=== PATIENT | male | born 1970 | race Caucasian/White ===

== ENCOUNTER → 2021-02-03 | Outpatient (CLI) | payer BC ==
[~2021-02-03] MED LIST: CATHETER FLUSH 10 ML SYR IV PRN
--- NOTE | 2021-02-03 15:07 | Diagnostic Imaging Report ---
INDICATION: Abdominal pain TECHNIQUE: Acquisitions were acquired over the abdomen after administration of 5.47 mCi of technetium 99m Choletec. At 60 minutes 8 ounces of Ensure was ingested. FINDINGS: Some homogeneous uptake of isotope throughout the liver. There is significant accumulation within the gallbladder by 30 minutes. There is free flow of activity in the small bowel. Ejection fraction is 43.7%. IMPRESSION: No evidence of cystic duct obstruction with a normal ejection fraction of 43.7%. Dictated by: Dictated on workstation # [id number]
== END ==
LOC: CARD 11:15
PROVIDERS: ATTEND Nurse Practitioner Family
DX: R10.811 Right upper quadrant abdominal tenderness (principal); R10.9 Unspecified abdominal pain
CPT/HCPCS: 78227; A9537

== ENCOUNTER 2021-04-18 18:17 | Emergency (ER) | payer BC ==
[~2021-04-18] VITALS: Ht 177.8 cm; Wt 113.4 kg
[2021-04-18] MEDS ORDERED: TETANUS,DIPTH,PERTUSS P/F (BOOSTRIX) 0.5 ML VIAL IM ONE (18:45)
[2021-04-18] MEDS ORDERED: CATHETER FLUSH 10 ML SYR IV PRN (18:45)
[2021-04-18] MEDS ORDERED: IOHEXOL 350 MG/ML 100 ML (OMNIPAQUE 350) VIAL IV ONE (18:45)
[2021-04-18] MEDS ORDERED: LACTATED RINGERS 1,000 ML IV ONE (18:45)
[2021-04-18] MEDS ORDERED: NS 100 ML (IVPB) BAG IV ONE (18:45)
[2021-04-18] MEDS ORDERED: HOLD METFORMIN - RECEIVED CONTRAST 20 ML VIAL IV SCH (18:45)
--- NOTE | 2021-04-18 18:48 | ED Trauma-Multisystem ---
General Chief Complaint: Trauma-Non Activation Stated Complaint: FALL/L ARM INJ Nursing Triage Note: PT REPORTS THAT HE WAS WASHING HIS TRACTOR AND FELL OFF THE FRONT TIRE APPROX 4 FOOT OFF THE GROUND LANDING ON HIS FACE. PT REPORTS NECK, RIGHT SHOULDER, LEFT ARM PAIN. PT REPORTS LOC Source of Information: Patient History of Present Illness Date Seen by Provider: Apr 18, 2021 Time Seen by Provider: 18:30 Initial Comments PT ARRIVES VIA POV FROM HOME STATES HE WAS WASHING HIS TRACTOR, AND STANDING ON THE FRONT TIRE, AND FELL OFF, APPROXIMATELY 4', LANDING FACE FIRST AND ON LEFT WRIST, THEN ROLLED AND LANDED ON RIGHT SHOULDER--LANDED ON GRAVEL OCCURRED 1715 TONIGHT AT HOME + LOSS OF CONSCIOUSNESS--BRIEF, PER PT + POSTERIOR NECK PAIN + LEFT WRIST PAIN + RIGHT SHOULDER PAIN C/O PARESTHESIAS TO LEFT AC AREA AND FOREARM NO VISION CHANGES NO DIZZINESS NO NAUSEA/VOMITING NO PAIN IN LEGS NO PAIN IN CHEST OR ABDOMEN LAST TETANUS VACCINE 2002 PCP: OLVIN FUENTES IN [place] Allergies and Home Medications Allergies Coded Allergies: No Known Allergies (Verified Allergy, Unknown, 04/18/21) Home Medications Cyclobenzaprine HCl 10 Mg Tablet, 10 MG PO Q8H PRN for SPASMS Prescribed by: PEREZ LOPEZ on 04/18/212042 Patient Home Medication List Home Medication List Reviewed: Yes Review of Systems Review of Systems Constitutional: no symptoms reported Eyes: No Symptoms Reported Ears: No Symptoms Reported Nose: No Epistaxis; Other (NOSE PAIN AND ABRASIONS) Mouth: No Symptoms Reported Throat: No Symptoms to Report Respiratory: no symptoms reported Cardiovascular: No Symptoms Reported; Denies Chest Pain Gastrointestinal: no symptoms reported; No abdominal pain, No nausea, No vomiting Genitourinary: no symptoms reported Musculoskeletal: see HPI Skin: other (ABRASIONS TO FACE) Psychiatric/Neurological: See HPI, Headache, Tingling, Other (+ LOSS OF CONSCIOUSNESS) Past Rzeseno-Itccrb-Ctjunx Hx Past Med/Social Hx: Reviewed and Corrections made Patient Social History Alcohol Use: Rarely Uses Drug of Choice: DENIES Smoking Status: Never a Smoker 2nd Hand Smoke Exposure: No Recent Infectious Disease Expo: No Recent Hopitalizations: No Seasonal Allergies Seasonal Allergies: No Past Medical History Surgeries: Yes (WISDOM TEETH PULLED; RIGHT SHOULDER SURGERY) Orthopedic Respiratory: Yes Asthma Cardiac: Yes High Cholesterol, Hypertension Neurological: Yes (20+ YEARS SINCE LAST SEIZURE) Seizure Disorder Genitourinary: No Gastrointestinal: Yes Gastroesophageal Reflux Musculoskeletal: Yes (LEFT SHOULDER SURGERY-DR. TOLEDO/ORTHO 4 STATES) Chronic Back Pain, Fractures Endocrine: No HEENT: Yes (WEARS GLASSES; WISDOM TEETH PULLED) Cancer: No Psychosocial: No Integumentary: No Blood Disorders: No Physical Exam Vital Signs Vital Signs - First Documented 04/18/21 04/18/21 18:22 18:58 Temp 36.6 Pulse 81 Resp 17 B/P (MAP) 169/102 (124) Pulse Ox 98 O2 Delivery Room Air FiO2 21 Height, Weight, BMI Height: '" Weight: lbs. oz. kg; 35.00 BMI Method: General Appearance: No Apparent Distress, WD/WN, Other (TALKATIVE, DOES NOT APPEAR TO BE IN ANY DISCOMFORT OR DISTRESS) Head: Other (ABRASIONS TO NOSE AND FOREHEAD. ) Eyes: Bilateral Eye Normal Inspection, Bilateral Eye PERRL, Bilateral Eye EOMI Ears, Nose, Throat: Hearing Grossly Normal, No Evidence of ENT Injury, No Dental Injury Neck: Other (TENDERNESS TO MID CERVICAL SPINE) Cardiovascular: Regular Rate, Rhythm, No Edema, No JVD, No Murmur, Normal Peripheral Pulses Respiratory: Chest Non Tender, Normal Breath Sounds, No Accessory Muscle Use, No Respiratory Distress Gastrointestinal: Normal Bowel Sounds, No Organomegaly, Non Tender, Soft Back: No CVA Tenderness, No Vertebral Tenderness Extremity: Other (TENDERNESS TO RIGHT SHOULDER, LEFT WRIST AND FOREARM. DISTAL MOTOR/SENSORY/VASCULAR INTACT, BUT LIMITED ROM AT RIGHT SHOULDER AND LEFT WRIST) Neurologic/Psychiatric: Alert, Oriented x3, No Motor/Sensory Deficits, Normal Mood/Affect, rn post partum II-XII Norm as Tested Skin: Normal Color, Warm/Dry, Other (ABRASIONS TO FACE NOTED ABOVE) [place] Coma Score Best Eye Response (Amanda): (4) Open Spontaneously Best Verbal Response (Amanda): (5) Oriented Best Motor Response ([place]): (6) Obeys Commands Amanda Total: 15 Procedures/Interventions Splinting and Joint Reduction : Splints: [place] Wrist Progress/Results/Core Measures Results/Orders Lab Results Laboratory Tests Test 04/18/21 18:48 04/18/21 21:00 Range/Units White Blood Count 8.8 4.3-11.0 10^3/uL Red Blood Count 4.62 4.30-5.52 10^6/uL Hemoglobin 14.4 13.3-17.7 g/dL Hematocrit 43 40-54 % Mean Corpuscular Volume 93 80-99 fL Mean Corpuscular Hemoglobin 31 25-34 pg Mean Corpuscular Hemoglobin Concent 34 32-36 g/dL Red Cell Distribution Width 12.3 10.0-14.5 % Platelet Count 280 130-400 10^3/uL Mean Platelet Volume 8.0 L 9.0-12.2 fL Immature Granulocyte % (Auto) 0 % Neutrophils (%) (Auto) 57 42-75 % Lymphocytes (%) (Auto) 30 12-44 % Monocytes (%) (Auto) 9 0-12 % Eosinophils (%) (Auto) 3 0-10 % Basophils (%) (Auto) 1 0-10 % Neutrophils # (Auto) 5.0 1.8-7.8 10^3/uL Lymphocytes # (Auto) 2.6 1.0-4.0 10^3/uL Monocytes # (Auto) 0.8 0.0-1.0 10^3/uL Eosinophils # (Auto) 0.3 0.0-0.3 10^3/uL Basophils # (Auto) 0.0 0.0-0.1 10^3/uL Immature Granulocyte # (Auto) 0.0 0.0-0.1 10^3/uL Sodium Level 140 135-145 MMOL/L Potassium Level 4.2 3.6-5.0 MMOL/L Chloride Level 102 98-107 MMOL/L Carbon Dioxide Level 28 21-32 MMOL/L Anion Gap 10 5-14 MMOL/L Blood Urea Nitrogen 17 7-18 MG/DL Creatinine 1.13 0.60-1.30 MG/DL Estimat Glomerular Filtration Rate > 60 BUN/Creatinine Ratio 15 Glucose Level 96 70-105 MG/DL Calcium Level 8.6 8.5-10.1 MG/DL Corrected Calcium 8.3 L 8.5-10.1 MG/DL Total Bilirubin 0.2 0.1-1.0 MG/DL Aspartate Amino Transf (AST/SGOT) 44 H 5-34 U/L Alanine Aminotransferase (ALT/SGPT) 49 0-55 U/L Alkaline Phosphatase 83 40-136 U/L Total Protein 7.1 6.4-8.2 GM/DL Albumin 4.4 3.2-4.5 GM/DL Serum Alcohol < 10 <10 MG/DL Urine Color YELLOW Urine Clarity CLEAR Urine pH 6.0 5-9 Urine Specific [place] 1.015 L 1.016-1.022 Urine Protein NEGATIVE NEGATIVE Urine Glucose (UA) NEGATIVE NEGATIVE Urine Ketones NEGATIVE NEGATIVE Urine Nitrite NEGATIVE NEGATIVE Urine Bilirubin NEGATIVE NEGATIVE Urine Urobilinogen 0.2 < = 1.0 MG/DL Urine Leukocyte Esterase NEGATIVE NEGATIVE Urine RBC (Auto) NEGATIVE NEGATIVE Urine RBC NONE /HPF Urine WBC NONE /HPF Urine Crystals NONE /LPF Urine Bacteria NEGATIVE /HPF Urine Casts NONE /LPF Urine Mucus NEGATIVE /LPF Urine Culture Indicated NO Urine Opiates Screen NEGATIVE NEGATIVE Urine Oxycodone Screen NEGATIVE NEGATIVE Urine Methadone Screen NEGATIVE NEGATIVE Urine Propoxyphene Screen NEGATIVE NEGATIVE Urine Barbiturates Screen POSITIVE H NEGATIVE Ur Tricyclic Antidepressants Screen NEGATIVE NEGATIVE Urine Phencyclidine Screen NEGATIVE NEGATIVE Urine Amphetamines Screen NEGATIVE NEGATIVE Urine Methamphetamines Screen NEGATIVE NEGATIVE Urine Benzodiazepines Screen NEGATIVE NEGATIVE Urine Cocaine Screen NEGATIVE NEGATIVE Urine Cannabinoids Screen NEGATIVE NEGATIVE My Orders Orders - PEREZ LOPEZ DO Ed Iv/Invasive Line Start (04/18/21 18:35) Monitor-Rhythm Ecg Trace Only (04/18/21 18:35) Ct Head/Face/Cervical Wo (04/18/21 18:35) Ct Thoracic/Lumbar Spine Wo (04/18/21 18:35) Chest 1 View, Ap/Pa Only (04/18/21 18:35) Shoulder, Right, 3 Views (04/18/21 18:35) Forearm, Left, 2 Views (04/18/21 18:35) Wrist, Left, 3 Views Or More (04/18/21 18:35) Pelvis (04/18/21 18:35) Alcohol (04/18/21 18:35) Cbc With Automated Diff (04/18/21 18:35) Comprehensive Metabolic Panel (04/18/21 18:35) Dilantin (Phenytoin) (04/18/21 18:35) Drug Screen Stat (Urine) (04/18/21 18:35) Ua Culture If Indicated (04/18/21 18:35) Ed Iv/Invasive Line Start (04/18/21 18:35) Lactated Ringers (Lr 1000 Ml Iv Solution (04/18/21 18:45) Dipht,Pertuss(Acell),Tet Adult (Boostrix (04/18/21 18:45) Ct Chest/Abdomen/Pelvis W (04/18/21 18:35) Cervical Collar (04/18/21 18:41) Iohexol Injection (Omnipaque 350 Mg/Ml 1 (04/18/21 18:45) Received Contrast (Hold Metformin- Contr (04/18/21 18:45) Ns (Ivpb) (Sodium Chloride 0.9% Ivpb Bag (04/18/21 18:45) Sodium Chloride Flush (Catheter Flush Sy (04/18/21 18:45) Medications Given in ED Current Medications Medications Dose Ordered Sig/Daria Route Start Time Stop Time Status Last Admin Dose Admin Diphtheria/ Tetanus/Acell Pertussis 0.5 ml ONCE ONCE IM 04/18/21 18:45 04/18/21 18:46 DC 04/18/21 18:57 0.5 ML Iohexol 100 ml ONCE ONCE IV 04/18/21 18:45 04/18/21 18:46 DC 04/18/21 19:24 100 ML Lactated Ringer's 1,000 ml @ 0 mls/hr Q0M ONCE IV 04/18/21 18:45 04/18/21 18:46 DC 04/18/21 18:57 999 MLS/HR Sodium Chloride 10 ml NEEDED PRN IV 04/18/21 18:45 04/18/21 21:07 DC 04/18/21 19:24 10 ML Sodium Chloride 100 ml ONCE ONCE IV 04/18/21 18:45 04/18/21 18:46 DC 04/18/21 19:24 80 ML Vital Signs/I&O 04/18/21 04/18/21 04/18/21 18:22 18:58 21:07 Temp 36.6 Pulse 81 76 Resp 17 17 B/P (MAP) 169/102 (124) 154/94 Pulse Ox 98 98 O2 Delivery Room Air Room Air Room Air FiO2 04/19/21 00:00 Intake Total 1000 ml Balance 1000 ml Blood Pressure Mean: 124 Progress Progress Note : Progress Note IMMEDIATELY PLACED IN CERVICAL COLLAR AND LAID FLAT ON ARRIVAL TRAUMA 2 ACTIVATION Diagnostic Imaging Comments XRAYS--PER RADIOLOGIST REPORTS AT 2029 CXR-- FINDINGS: Heart size and pulmonary vasculature are within normal limits, and the lungs are clear, bilaterally. IMPRESSION: Unremarkable chest. PELVIS XRAY-- FINDINGS: No acute fracture or dislocation is identified. No abnormal lytic or sclerotic focus is seen, and there is no radiopaque foreign body. IMPRESSION: No acute abnormality. RIGHT SHOULDER--FINDINGS/ IMPRESSION: No fracture or malalignment. Soft tissue shadows are unremarkable. LEFT FOREARM--FINDINGS/ IMPRESSION: Cortical irregularity seen in the lateral aspect of the distal right radial metaphysis is not confirmed on the dedicated wrist radiographs and is likely a chronic finding. Recommend correlation with point tenderness. No convincing acute fractures are identified. No left elbow joint effusion. LEFT WRIST:FINDINGS/ IMPRESSION: No acute fracture is identified. Normal alignment. No radiopaque foreign bodies. CT HEAD/MAXILLOFACIALS/CERVICAL SPINE--PER RADIOLOGIST REPORT AT 1949 FINDINGS: CT head and maxillofacial: Mild angulation of the anterior nasal septum without acute appearing fracture lines. Moderate mucosal thickening in the ethmoid and maxillary sinuses. Mild mucosal thickening in the sphenoid sinus. No air-fluid levels. Normal alignment of the temporomandibular joints. The mandible is intact. Mastoids are clear. No intracranial hemorrhage, mass effect, hydrocephalus or extra-axial fluid collections. No CT evidence of a territorial infarction. CT cervical spine: Normal alignment. Vertebral body heights are preserved. No fractures. Moderate diffuse degenerative endplate changes and osteophyte formation. No high-grade spinal canal stenosis is evident on soft tissue windows. Visualized paravertebral soft tissues are unremarkable. IMPRESSION: 1. No acute intracranial or cervical spine CT findings. 2. Mild angulation of the anterior nasal septum is most likely chronic. No acute appearing fracture lines are identified. 2. Moderate mucosal thickening in the ethmoid and axillary sinuses without air-fluid levels. CT THORACIC/LUMBAR SPINE--PER RADIOLOGIST REPORT AT 1956 FINDINGS: Normal alignment of the thoracic and lumbar spine. Chronic fracture through the tip of the C7 spinous process. No acute fractures. The visualized pelvis is intact. Moderate diffuse degenerative endplate changes including bridging anterior osteophytes throughout most of the thoracic spine. Disc osteophyte complex at L2-L3 and L3-L4 results in at least moderate spinal canal stenosis. Osteophytic ridging and height loss also results in high-grade neural foraminal narrowing on the right at L4-L5 and L5-S1. Visualized paravertebral soft tissues are unremarkable. IMPRESSION: 1. No acute CT findings in the thoracic or lumbar spine. 2. Spondylotic changes result in at least moderate spinal canal stenosis at L2-L3 and L3-L4. This could be better evaluated with MRI. There is also high-grade osseous neural foraminal narrowing on the right at L4-S1. CT CHEST/ABDOMEN/PELVIS--PER RADIOLOGIST REPORT AT 1956 CT CHEST: Lungs are clear and well expanded without evidence of pneumothorax or pulmonary contusion. There is no evidence of mediastinal hematoma. There is no evidence of fracture. No significant pleural or pericardial fluid is identified. IMPRESSION: 1. No CT evidence of acute abnormality within the thorax. CT ABDOMEN PELVIS: No focal hepatic or splenic abnormality is identified. There is no evidence of pancreatic, adrenal gland or renal lesion. No free fluid is seen within the abdomen or pelvis. There is no central retroperitoneal hematoma. Partially opacified urinary bladder is unremarkable. No fracture is seen. There is disc bulging and endplate spurring at the L4-L5 and L5-S1 levels with lesser involvement at the remainder of the lumbar disc spaces. IMPRESSION: 1. No CT evidence of acute abnormality within the abdomen or pelvis. Reviewed: Reviewed by Me Departure Impression Primary Impression: FALL OFF TRACTOR TIRE Additional Impressions: Concussion with brief loss of consciousness Cervical sprain Left wrist sprain Contusion of right shoulder Facial contusion Disposition: HOME, SELF-CARE Condition: Stable Departure-Patient Inst. Decision time for Depature: 20:25 Referrals: RICK BAH MD (PCP/Family) Primary Care Physician Patient Instructions: Concussion, Adult (DC), Contusion (DC), Neck Sprain (DC), Wrist Sprain ED Add. Discharge Instructions: ICE TO SORE AREAS AT 20 MINUTE INTERVALS FOR FIRST 1-2 DAYS, THEN ALTERNATE ICE AND HEAT TO SORE AREAS AT 20 MINUTE INTERVALS TYLENOL FOR PAIN FOR FIRST 24 HOURS, THEN YOU MAY ADD MOTRIN AFTER 24 HOURS IF NEEDED FOLLOW UP WITH YOUR DR IN 2-3 DAYS FOR FURTHER CARE--CALL IN AM TO SCHEDULE APPOINTMENT NO DRIVING OF ANY KIND, AND NO WORK UNTIL RECHECKED AND CLEARED BY YOUR DR All discharge instructions reviewed with patient and/or family. Voiced understanding. Scripts Cyclobenzaprine HCl (Cyclobenzaprine HCl) 10 Mg Tablet 10 MG PO Q8H PRN for SPASMS, #15 TAB 0 Refills Prov: PEREZ LOPEZ 6/21/21 Work/School Note: Work Release Form Date Seen in the Emergency Department: Apr 18, 2021 Restrictions: Need Release from Doctor PEREZ LOPEZ DO Apr 18, 2021 18:48
[2021-04-18 18:54] LABS: BASOPHILS % (AUTO) 1 % (0-10); EOSINOPHILS # (AUTO) 0.3 10^3/uL (0.0-0.3); EOSINOPHILS % (AUTO) 3 % (0-10); HEMATOCRIT 43 % (40-54); HEMOGLOBIN 14.4 g/dL (13.3-17.7); LYMPHOCYTES # (AUTO) 2.6 10^3/uL (1.0-4.0); LYMPHOCYTES % (AUTO) 30 % (12-44); MEAN CORPUSCULAR HEMOGLOBIN 31 pg (25-34); MEAN CORPUSCULAR HGB CONC 34 g/dL (32-36); MEAN CORPUSCULAR VOLUME 93 fL (80-99); MONOCYTES # (AUTO) 0.8 10^3/uL (0.0-1.0); MONOCYTES % (AUTO) 9 % (0-12); NEUTROPHILS % (AUTO) 57 % (42-75); PLATELET COUNT 280 10^3/uL (130-400); WHITE BLOOD COUNT 8.8 10^3/uL (4.3-11.0)
[2021-04-18 19:06] LABS: ALBUMIN 4.4 GM/DL (3.2-4.5); CHLORIDE 102 MMOL/L (98-107); POTASSIUM 4.2 MMOL/L (3.6-5.0); SODIUM 140 MMOL/L (135-145)
[2021-04-18 19:08] LABS: CALCIUM 8.6 MG/DL (8.5-10.1)
[2021-04-18 19:09] LABS: GLUCOSE 96 MG/DL (70-105); TOTAL PROTEIN 7.1 GM/DL (6.4-8.2)
[2021-04-18 19:10] LABS: CARBON DIOXIDE 28 MMOL/L (21-32)
[2021-04-18 19:11] LABS: BILIRUBIN,TOTAL 0.2 MG/DL (0.1-1.0)
[2021-04-18 19:12] LABS: ALKALINE PHOSPHATASE 83 U/L (40-136)
[2021-04-18 19:13] LABS: CREATININE SERUM 1.13 MG/DL (0.60-1.30); GFR ESTIMATED > 60
--- NOTE | 2021-04-18 19:13 | Diagnostic Imaging Report ---
Indication: Trauma sagittal Single AP view of the chest is obtained. COMPARISON: No previous study is available for comparison at this time. FINDINGS: Heart size and pulmonary vasculature are within normal limits, and the lungs are clear, bilaterally. IMPRESSION: Unremarkable chest. Dictated by: Dictated on workstation # [id number]
[2021-04-18 19:14] LABS: BUN/CREATININE RATIO 15
[2021-04-18 19:15] LABS: ALANINE AMINOTRANSFERASE 49 U/L (0-55)
--- NOTE | 2021-04-18 19:15 | Diagnostic Imaging Report ---
INDICATION: Fall with trauma AP view of the pelvis is obtained. FINDINGS: No acute fracture or dislocation is identified. No abnormal lytic or sclerotic focus is seen, and there is no radiopaque foreign body. IMPRESSION: No acute abnormality. Dictated by: Dictated on workstation # [id number]
--- NOTE | 2021-04-18 19:44 | Diagnostic Imaging Report ---
PROCEDURE: CT head, face, and cervical spine without contrast. TECHNIQUE: Multiple contiguous axial images were obtained through the head, neck, and facial bones without the use of intravenous contrast. Sagittal and coronal reformations through the cervical spine and facial bones were also performed. Auto Exposure Controls were utilized during the CT exam to meet ALARA standards for radiation dose reduction. INDICATION: Trauma. Pain in middle of neck. Hit face. Fall from tractor tire. COMPARISON: None. FINDINGS: CT head and maxillofacial: Mild angulation of the anterior nasal septum without acute appearing fracture lines. Moderate mucosal thickening in the ethmoid and maxillary sinuses. Mild mucosal thickening in the sphenoid sinus. No air-fluid levels. Normal alignment of the temporomandibular joints. The mandible is intact. Mastoids are clear. No intracranial hemorrhage, mass effect, hydrocephalus or extra-axial fluid collections. No CT evidence of a territorial infarction. CT cervical spine: Normal alignment. Vertebral body heights are preserved. No acute fractures. Chronic fracture through the tip of the C7 spinous process. Moderate diffuse degenerative endplate changes and osteophyte formation. No high-grade spinal canal stenosis is evident on soft tissue windows. Visualized paravertebral soft tissues are unremarkable. IMPRESSION: 1. No acute intracranial or cervical spine CT findings. 2. Mild angulation of the anterior nasal septum is most likely chronic. No acute appearing fracture lines are identified. 2. Moderate mucosal thickening in the ethmoid and axillary sinuses without air-fluid levels. Dictated by: Dictated on workstation # [id number]
--- NOTE | 2021-04-18 19:51 | Diagnostic Imaging Report ---
PROCEDURE: CT thoracic and lumbar spine without contrast. TECHNIQUE: Multiple contiguous axial images were obtained through the thoracic and lumbar spine without the use of intravenous contrast. Sagittal and coronal reformations were then performed. All CT scans use one or more of the following dose optimizing techniques: automated exposure control, MA and/or KvP adjustment based on a patient size and exam type, or iterative reconstruction. INDICATION: Fall from tractor tire. Pain in middle of neck. Right shoulder pain. COMPARISON: None. FINDINGS: Normal alignment of the thoracic and lumbar spine. Chronic fracture through the tip of the C7 spinous process. No acute fractures. The visualized pelvis is intact. Moderate diffuse degenerative endplate changes including bridging anterior osteophytes throughout most of the thoracic spine. Disc osteophyte complex at L2-L3 and L3-L4 results in at least moderate spinal canal stenosis. Osteophytic ridging and height loss also results in high-grade neural foraminal narrowing on the right at L4-L5 and L5-S1. Visualized paravertebral soft tissues are unremarkable. IMPRESSION: 1. No acute CT findings in the thoracic or lumbar spine. 2. Spondylotic changes result in at least moderate spinal canal stenosis at L2-L3 and L3-L4. This could be better evaluated with MRI. There is also high-grade osseous neural foraminal narrowing on the right at L4-S1. Dictated by: Dictated on workstation # [id number]
--- NOTE | 2021-04-18 19:53 | Diagnostic Imaging Report ---
PROCEDURE: CT chest, abdomen, and pelvis with contrast. TECHNIQUE: Multiple contiguous axial images were obtained through the chest, abdomen, and pelvis after the administration of intravenous contrast. Auto Exposure Controls were utilized during the CT exam to meet ALARA standards for radiation dose reduction. INDICATION: Trauma/fall with loss of consciousness CT CHEST: Lungs are clear and well expanded without evidence of pneumothorax or pulmonary contusion. There is no evidence of mediastinal hematoma. There is no evidence of fracture. No significant pleural or pericardial fluid is identified. IMPRESSION: 1. No CT evidence of acute abnormality within the thorax. CT ABDOMEN PELVIS: No focal hepatic or splenic abnormality is identified. There is no evidence of pancreatic, adrenal gland or renal lesion. No free fluid is seen within the abdomen or pelvis. There is no central retroperitoneal hematoma. Partially opacified urinary bladder is unremarkable. No fracture is seen. There is disc bulging and endplate spurring at the L4-L5 and L5-S1 levels with lesser involvement at the remainder of the lumbar disc spaces. IMPRESSION: 1. No CT evidence of acute abnormality within the abdomen or pelvis. Dictated by: Dictated on workstation # [id number]
--- NOTE | 2021-04-18 20:26 | Diagnostic Imaging Report ---
EXAM: SHOULDER, RIGHT, 3 VIEWS INDICATION: Trauma. Fall from tractor tire. COMPARISON: None. FINDINGS/ IMPRESSION: No fracture or malalignment. Soft tissue shadows are unremarkable. Dictated by: Dictated on workstation # [id number]
--- NOTE | 2021-04-18 20:27 | Diagnostic Imaging Report ---
EXAM: WRIST, LEFT, 3 VIEWS OR MORE INDICATION: Left upper extremity pain. Fall from tractor tire. COMPARISON: Left forearm radiographs also performed today. FINDINGS/ IMPRESSION: No acute fracture is identified. Normal alignment. No radiopaque foreign bodies. Dictated by: Dictated on workstation # [id number]
--- NOTE | 2021-04-18 20:27 | Diagnostic Imaging Report ---
EXAM: FOREARM, LEFT, 2 VIEWS INDICATION: Fall from tractor tire. Left upper extremity pain. COMPARISON: Left wrist radiographs 04/18/2021. FINDINGS/ IMPRESSION: Cortical irregularity seen in the lateral aspect of the distal right radial metaphysis is not confirmed on the dedicated wrist radiographs and is likely a chronic finding. Recommend correlation with point tenderness. No convincing acute fractures are identified. No left elbow joint effusion. Dictated by: Dictated on workstation # [id number]
[2021-04-18] MEDS ORDERED: CYCL10TA9 PO (20:43)
[2021-04-18 21:05] LABS: BILIRUBIN,URINE NEGATIVE (NEGATIVE); CLARITY,URINE CLEAR; COLOR,URINE YELLOW; GLUCOSE, URINE (UA) NEGATIVE (NEGATIVE); KETONES,URINE NEGATIVE (NEGATIVE); LEUKOCYTE ESTERASE ,URINE NEGATIVE (NEGATIVE); NITRITE,URINE NEGATIVE (NEGATIVE); PROTEIN,URINE NEGATIVE (NEGATIVE)
[2021-04-18 21:07] VITALS: BP 154/94
[2021-04-18 21:14] LABS: BACTERIA,URINE NEGATIVE /HPF
[2021-04-18 21:24] LABS: AMPHETAMINE SCREEN, URINE NEGATIVE (NEGATIVE); BARBITURATE SCREEN URINE POSITIVE (NEGATIVE); BENZODIAZEPINES SCREEN URINE NEGATIVE (NEGATIVE); CANNABINOID SCREEN, URINE NEGATIVE (NEGATIVE); COCAINE SCREEN URINE NEGATIVE (NEGATIVE); METHADONE STAT NEGATIVE (NEGATIVE); METHAMPHETAMINE SCREEN URINE S NEGATIVE (NEGATIVE); OPIATE SCREEN URINE NEGATIVE (NEGATIVE); OXYCODONE STAT NEGATIVE (NEGATIVE); PROPOXYPHENE STAT NEGATIVE (NEGATIVE); TRICYCLIC ANTIDEPRESSANTS SCRE NEGATIVE (NEGATIVE)
== END 2021-04-18 21:07 | disposition home or self-care (01) ==
LOC: EDUNIT# 18:17 → ER 18:19
DX: S06.0X9A Concussion with loss of consciousness of unspecified duration, initial encounter (principal); S13.4XXA Sprain of ligaments of cervical spine, initial encounter; S63.502A Unspecified sprain of left wrist, initial encounter; S40.011A Contusion of right shoulder, initial encounter; S00.83XA Contusion of other part of head, initial encounter; J45.909 Unspecified asthma, uncomplicated; I10 Essential (primary) hypertension; R40.2410 Glasgow coma scale score 13-15, unspecified time; Z23 Encounter for immunization; X50.1XXA Overexertion from prolonged static or awkward postures, initial encounter
CPT/HCPCS: 70450; 70486; 71045; 71260; 72125; 72128; 72131; 72170; 73030; 73090; 73110; 74177; 80053; 80185; 80306; 81000; 85025; 93041; 99284; G0480; 36415; 80320; 90715

== ENCOUNTER 2023-02-21 06:48 | Outpatient (CLI) | payer BC ==
[~2023-02-21] VITALS: Ht 177.8 cm; Wt 122.7 kg
[~2023-02-21 06:48] MED LIST changes: -CATHETER FLUSH 10 ML SYR IV PRN; +CYCL10TA25 PO
[2023-02-21] MEDS ORDERED: LISI40TA9 PO (09:53)
[2023-02-21] MEDS ORDERED: PHEN100C4 PO (09:53)
[2023-02-21] MEDS ORDERED: OMEP40CA6 PO (09:53)
[2023-02-21] MEDS ORDERED: SIMV10TA26 PO (09:53)
== END 2023-02-21 10:01 | disposition home or self-care (01) ==
LOC: PREOP 06:48
PROVIDERS: ATTEND Surgery
DX: Z01.818 Encounter for other preprocedural examination (principal)

== ENCOUNTER → 2023-03-02 | Outpatient (CLI) | payer BC ==
[~2023-03-02] MED LIST changes: +BARIUM for suspension 96% w/w (Vanilla Silq Medium Density) PO ONE; +BARIUM for suspension 98% w/w (Vanilla Silq High Density) PO ONE; +LISI40TA9 PO; +OMEP40CA6 PO; +PHEN100C4 PO; +SIMV10TA26 PO
--- NOTE | 2023-03-02 12:25 | Diagnostic Imaging Report ---
INDICATION: Food getting stuck in the throat. Patient ingested effervescent crystals as well as thin and thick barium and imaging of the esophagus was performed in multiple obliquities. 46 seconds of fluoroscopic time was utilized. Preliminary radiograph of the chest is unremarkable. The esophagus has a fairly smooth contour. No mass or stricture is identified. No gastroesophageal reflux or hiatal hernia was demonstrated. Images of stomach are unremarkable. IMPRESSION: Unremarkable esophagram. Dictated by: Dictated on workstation # [id number]
== END ==
LOC: RAD 11:00
PROVIDERS: ATTEND Surgery
DX: T18.128A Food in esophagus causing other injury, initial encounter (principal)
CPT/HCPCS: 74220

== ENCOUNTER 2023-03-06 11:42 | Day surgery (SDC) | payer BC ==
[~2023-03-06] VITALS: Ht 178 cm; Wt 122.7 kg
[~2023-03-06 11:42] MED LIST changes: -BARIUM for suspension 96% w/w (Vanilla Silq Medium Density) PO ONE; -BARIUM for suspension 98% w/w (Vanilla Silq High Density) PO ONE
[2023-03-06] MEDS ORDERED: LACTATED RINGERS 1,000 ML IV STA (11:46)
--- NOTE | 2023-03-06 11:57 | Progress Note-Pre Operative ---
Pre-Operative Progress Note Date H&P Reviewed: March 06, 2023 Time H&P Reviewed: 11:57 History & Physical: H&P Reviewed, Patient Examed, No changes noted Pre-Operative Diagnosis: Abd pain, Dysphagia, screening colonoscopy DAMIAN PERDOMO DO March 06, 2023 11:57
[2023-03-06] MEDS ORDERED: HURRICAINE EXT TUBE (BENZOCAINE) XX PRN (12:00)
[2023-03-06 12:09] VITALS: BP 154/101
[2023-03-06] MEDS ORDERED: MIDAZOLAM 2 MG/2 ML (VERSED) VIAL ONE (12:54)
[2023-03-06] MEDS ORDERED: PROPOFOL INJECTION 50 ML IV ONE ×2 (12:54→13:43)
[2023-03-06 13:45] VITALS: BP 141/82
--- NOTE | 2023-03-06 13:48 | Progress Note-Post Operative ---
Post-Operative Progess Note Surgeon (s)/Manager Field (s) Surgeon DAMIAN PERDOMO DO Manager Field: na Pre-Operative Diagnosis Abd pain, Dysphagia, screening colonoscopy Post-Operative Diagnosis Gastric polyps, colon polyps, diverticulosis Procedure & Operative Findings Date of Procedure 03/06/23 Procedure Performed/Findings EGD with biopsies and snare polypectomy, Colonoscopy with hot biopsies x2 Anesthesia Type per [employer] Estimated Blood Loss Estimated blood loss (mL): none Specimens/Packing Specimens Removed Antrum, Gastric polyp, GE junction, colon polyps x2 DAMIAN PERDOMO DO March 06, 2023 13:48
[2023-03-06 13:50] VITALS: BP 137/78
--- NOTE | 2023-03-06 13:50 | Discharge Inst-Simple/Standard ---
Discharge Inst-Standard Patient Instructions/Follow Up Plan of Care/Instructions/FU: F/U with Jens in two weeks Activity as Tolerated: Yes Discharge Diet: Regular Diet (high fiber) DAMIAN PERDOMO DO March 06, 2023 13:50
[2023-03-06 14:00] VITALS: BP 140/83
[2023-03-06 14:11] VITALS: BP 140/83
--- NOTE | 2023-03-06 14:26 | Anesthesia-General Post-Op ---
MAC Patient Condition Mental Status/LOC: Same as Preop Cardiovascular: Satisfactory Nausea/Vomiting: Absent Respiratory: Satisfactory Pain: Controlled Complications: Absent Post Op Complications Complications None Follow Up Care/Instructions Patient Instructions None needed. Anesthesiology Discharge Order Discharge Order Patient is doing well, no complaints, stable vital signs, no apparent adverse anesthesia problems. No complications reported per nursing. ELIZABETH DE PAZ CRNA March 06, 2023 14:26
--- NOTE | 2023-03-06 22:22 | OPERATIVE REPORT ---
DATE OF SERVICE: 03/06/2023 PREOPERATIVE DIAGNOSES: Abdominal pain, dysphagia, screening colonoscopy. POSTOPERATIVE DIAGNOSES: Gastric polyps, colon polyps, diverticulosis. PROCEDURES: EGD with biopsies and snare polypectomy x1, colonoscopy with hot biopsy polypectomy x2. SURGEON: Joseluis Colindres DO ANESTHESIA: Per FEATHER SHAPER. ESTIMATED BLOOD LOSS: None. COMPLICATIONS: None. INDICATIONS: The patient is a 53-year-old male who has been having some abdominal pain, dysphagia symptoms and needing screening colonoscopy. He understands risks and benefits of procedure and wished to proceed. Consent was signed in chart. DESCRIPTION OF PROCEDURE: The patient was taken to endoscopy suite, placed in left lateral recumbent position. Timeout was performed. Scope was inserted in the mouth, down the esophagus, stomach, into the duodenum without difficulty. No polyps, masses or ulcerations within the duodenum. Scope was slowly retracted back into stomach, where it was further insufflated. Gastric polyps present. Biopsy of the antrum was obtained. Larger polyp snare polypectomy was performed. Scope was retroflexed noting no other pathology. Scope was returned to its normal position, slowly withdrawn until distal esophagus. No polyps, masses or ulcerations. Biopsy of GE junction was obtained. Scope was slowly retracted back until completely removed, noting no other pathology. Digital rectal exam was performed. No palpable polyps, masses or ulcerations. Scope was inserted in the rectum and advanced all the way to the cecum without difficulty. No polyps, masses or ulcerations within the cecum. In the ascending colon, another polyp was present, which hot biopsy polypectomy was performed. Scope was then continuously retracted back. No polyps, masses or ulcerations within the remainder of the ascending. In the transverse colon, there was small polyp, which hot biopsy polypectomy was performed. Scope was then continuously retracted back. No polyps, masses or ulcerations in the remainder of the transverse, descending and sigmoid colon. In sigmoid colon, minimal amount of diverticulosis present. Once in the rectum, scope was retroflexed noting no other pathology. Scope was returned to its normal position, slowly withdrawn until completely removed. The patient tolerated the procedure well without complications, taken to recovery room in stable condition. RECOMMENDATIONS: The patient will need repeat colonoscopy in 5 years. Any issues before that, be seen at that time. The patient with diverticulosis, recommend high fiber diet. The patient with dysphagia symptom, await biopsy results. I would also consider further radiological studies to assess his swallow. Job ID: [id number] DocumentID: [id number] Dictated Date: 03/06/2023 13:48:05 Outsole Cutter Machine Date: 03/06/2023 22:20:00 Dictated By: DO LLOYD HUBER
== END 2023-03-06 14:25 | disposition home or self-care (01) ==
LOC: ENDO 11:42
PROVIDERS: ATTEND Surgery
DX: D12.2 Benign neoplasm of ascending colon (principal); D12.3 Benign neoplasm of transverse colon; K31.7 Polyp of stomach and duodenum; K57.30 Diverticulosis of large intestine without perforation or abscess without bleeding; K31.89 Other diseases of stomach and duodenum; E66.01 Morbid (severe) obesity due to excess calories; Z68.38 Body mass index [BMI] 38.0-38.9, adult